=== PATIENT | male | born 1975 | race Caucasian/White ===

== ENCOUNTER 2020-12-28 22:07 | Emergency (ER) | payer MEDICAID ==
[~2020-12-28] VITALS: Ht 170.2 cm; Wt 81.6 kg
[2020-12-28 22:41] VITALS: BP 120/95
--- NOTE | 2020-12-28 22:43 | NUR ---
TO LOBBY A/W BED AMBULATORY
--- NOTE | 2020-12-29 00:47 | NUR ---
AMBULATORY TO CHAIR C
--- NOTE | 2020-12-29 00:48 | NUR ---
NOSE AND SWELLING FOR X2 DAYS, NO TRAUMA NOR INJURY, NO BLEEDING. PAIN OF AN 8/10 THROBBING. PATIENT TOOK TYLENOL AT 1800 WITH NO RELIEF. PATIENT REPORTS PAIN UPON PALPATION. AAOX4. VSS. PMH DENIES NKA
--- NOTE | 2020-12-29 01:39 | NUR ---
patient to bathroom ambulatory
[2020-12-29] MEDS ORDERED: ETHYL CHLORIDE 105 ML SPR TP ONE (01:40)
[2020-12-29] MEDS ORDERED: KETOROLAC 30 MG/ML VIAL IM ONE (01:55)
[2020-12-29] MEDS ORDERED: AMOX-1000 PO (01:56)
[2020-12-29] MEDS ORDERED: AMOXIL/CLAVULANATE 875/125 MG 1 TAB PO SCH (02:00)
[2020-12-29 02:22] VITALS: BP 159/94
--- NOTE | 2020-12-29 02:22 | NUR ---
Patient discharged with v/s stable. Written and verbal after care instructions given and explained. Patient alert, oriented and verbalized understanding of instructions. Ambulatory with steady gait. All questions addressed prior to discharge. ID band removed. Patient advised to follow up with PMD. Rx of Augmentin 875-125 given. Patient educated on indication of medication including possible reaction and side effects. Opportunity to ask questions provided and answered.
== END 2020-12-29 02:22 | disposition home or self-care (01) ==
LOC: MED 22:07
DX: L08.9 Local infection of the skin and subcutaneous tissue, unspecified (principal); F17.210 Nicotine dependence, cigarettes, uncomplicated
CPT/HCPCS: 96372; 99283; J1885